=== PATIENT | female | born 1980 | race African-American/Black ===

== ENCOUNTER 2016-08-07 22:57 | Emergency (ER) | payer SELFPAY ==
[~2016-08-07] VITALS: Ht 172.7 cm; Wt 114.5 kg
[2016-08-07 23:00] VITALS: Ht 172.7 cm; Wt 114.5 kg
== END 2016-08-08 02:45 | disposition left against medical advice (07) ==
LOC: FTE 22:57
DX: Z53.21 Procedure and treatment not carried out due to patient leaving prior to being seen by health care provider (principal)

== ENCOUNTER 2018-08-19 12:10 | Emergency (ER) | payer BC ==
[~2018-08-19] VITALS: Ht 170.2 cm; Wt 119.1 kg
[2018-08-19 12:13] VITALS: BP 168/100; PULSE 85; RESP 18; Ht 170.2 cm; Wt 119.1 kg
[2018-08-19] MEDS ORDERED: LIDOCAINE/MYLANTA 40 ML BTL PO STA (13:10)
[2018-08-19] MEDS ORDERED: MAG-19 PO (15:43)
[2018-08-19] MEDS ORDERED: LOPE2CAP PO (15:43)
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
== END 2018-08-19 15:53 | disposition home or self-care (01) ==
LOC: FTE 12:10
DX: K80.20 Calculus of gallbladder without cholecystitis without obstruction (principal)
CPT/HCPCS: 36415; 76705; 80053; 81001; 81025; 83690; 85025